=== PATIENT | male | born 1980 | race Caucasian/White ===

== ENCOUNTER 2018-10-28 09:43 | Day surgery (SDC) | payer OTHER ==
[2018-10-24 17:03] VITALS: BMI 20.1
[2018-10-28] VITALS (12 sets, daily range): BP systolic 122–144; BP diastolic 72–92; PULSE 74–86; RESP 11–20; Ht 193 cm; Wt 76.3 kg
[~2018-10-28] VITALS: Ht 193 cm; Wt 76.3 kg
[~2018-10-28 09:43] MED LIST: DESFLURANE 15 MIN ONE; DEXAMETHASONE 4 MG/ML 5 ML INJ ONE
--- NOTE | 2018-10-28 11:59 | SIPON ---
Date/Time of Note Date/Time of Note DATE: 10/28/18 TIME: 11:58 Operative Report Preoperative Diagnosis dns, nasal fx Postoperative Diagnosis same Operation/Procedure Performed [email or web address] Surgeon see signature line access services assistant na Anesthesia: general Estimated blood loss: 10 - 50 ml's Transfusion Required none Specimen septal bone Grafts/Implants none Complications none JODY COTTER MD Oct 28, 2018 11:59
--- NOTE | 2018-10-28 14:14 | HPN ---
Date/Time of Note Date/Time of Note DATE: 10/28/18 TIME: 14:13 Interval H&P Admission Note Pt. seen H&P reviewed: No system changes JODY COTTER MD Oct 28, 2018 14:14
[2018-10-28] MEDS ORDERED: LIDOCAINE 1%/EPI (1:100,000) (MDV) 20 ML ONE (14:24)
[2018-10-28] MEDS ORDERED: OXYMETAZOLINE 0.05% 15 ML NAS SPRAY NASAL ONE (14:24)
--- NOTE | 2018-10-28 14:25 | PREAC ---
Date/Time of Note Date/Time of Note DATE: 10/28/18 TIME: 14:23 Anesthesia Eval and Record Evaluation Time Pre-Procedure Interview DATE: 10/28/18 TIME: 14:23 Age 38 Sex male NPO: 8 hrs (deviated septum) Preoperative diagnosis nasal fracture, deviated septum Planned procedure open reduction nasal fx, septoplasty, B/l turbinate modification Past Medical History Past Medical History: None Surgery & Anesthesia Issues No known issue Meds Anticoagulation: No Beta Leroy within 24 hr: No Reason Beta Leroy not given: Pt. not on B-Leroy No Active Prescriptions or Reported Meds Meds reviewed: Yes Allergies Coded Allergies: aspirin (Verified Allergy, Unknown, NAUSEA AND VOMITTING, 10/28/18) shellfish derived (Verified Allergy, Unknown, ITCHY EYES,WATERY EYES,SORE THROAT, 10/24/18) soybean (Verified Allergy, Unknown, ITCHY EYES,SORE THROAT,WATERY EYES, 10/24/18) Uncoded Allergies: SESAME (Allergy, Unknown, ITCHY EYES,WATERY EYES,SORE THROAT,, 10/24/18) TUNA (Allergy, Unknown, ITCHY EYES,SORE THROAT,WATERY EYES,SNEEZING, 10/24/18) Allergies Reviewed: Yes Labs/Studies Labs Reviewed: Reviewed by anesthesiologist test: N/A Studies: ECG (n/a), CXR (n/a) Pre-procedure Exam Last vitals Vital Signs Date Temp Pulse Resp B/P (MAP) Pulse Ox O2 O2 Flow FiO2 Time Delivery Rate 10/28/18 97.9 16 129/72 98 Room Air 11:16 (91) Airway: Adequate mouth opening Mallampati: Mallampati I Teeth: Normal Lung: Normal Heart: Normal ASA Physical Status ASA physical status: 1 Emergency: None Planned Anesthetic General/MAC: ETT Planned Pain Management Parenteral pain med Pre-operative Attestations Prior to commencing anesthesia and surgery, the patient was re-evaluated, there was verification of: *The patient's identity *The results of appropriate recent lab work and preoperative vital signs *The above evaluation not changing prior to induction *Anesthetic plan, risk benefits, alternative and complications discussed with patient/family; questions answered; patient/family understands, accepts and wishes to proceed. EFFIE CRISTOBAL MD Oct 28, 2018 14:25
[2018-10-28] MEDS ORDERED: FENTAnyl 50 MCG/ML VIAL IV PRN ×3 (14:30)
[2018-10-28] MEDS ORDERED: ONDANSETRON 4 MG INJ IV PRN (14:30)
[2018-10-28] MEDS ORDERED: HYDROmorphONE 1 MG/5 ML IV SYRINGE IV PRN ×3 (14:30)
[2018-10-28] MEDS ORDERED: OXYCODONE/ACETAMINOPHEN (5/325) TAB PO PRN ×2 (14:30)
[2018-10-28] MEDS ORDERED: DIPHENHYDRAMINE 50 MG INJ IV PRN (14:30)
[2018-10-28] MEDS ORDERED: MEPERIDINE 25 MG INJ IV PRN (14:30)
[2018-10-28] MEDS ORDERED: ONDANSETRON 4 MG INJ ONE (14:31)
[2018-10-28] MEDS ORDERED: PROPOFOL 20 ML ONE (14:31)
[2018-10-28] MEDS ORDERED: ROCURONIUM 50 MG INJ ONE (14:31)
[2018-10-28] MEDS ORDERED: MIDAZOLAM 1 MG/ML 2 ML INJ ONE (14:34)
[2018-10-28] MEDS ORDERED: FENTAnyl 50 MCG/ML VIAL ONE (14:36)
--- NOTE | 2018-10-28 17:18 | PAC ---
Date/Time of Note Date/Time of Note DATE: 10/28/18 TIME: 17:18 Post-Anesthesia Notes Post-Anesthesia Note Last documented vital signs Vital Signs Date Temp Pulse Resp B/P (MAP) Pulse Ox O2 O2 Flow FiO2 Time Delivery Rate 10/28/18 98.3 17:00 10/28/18 98.2 78 15 135/79 97 Room Air 16:59 (97) Activity: WNL Respiratory function: WNL Cardiovascular function: WNL Mental status: Baseline Pain reasonably controlled: Yes Hydration appropriate: Yes Nausea/Vomiting absent: No EFFIE CRISTOBAL MD Oct 28, 2018 17:18
[2018-10-28] MEDS ORDERED: NEOSTIGMINE 3 MG/3 ML SYRINGE ONE (17:25)
[2018-10-28] MEDS ORDERED: GLYCOPYRROLATE 0.4 MG INJ ONE (17:25)
== END 2018-10-28 18:00 | disposition home or self-care (01) ==
LOC: SDS 09:43
PROVIDERS: ATTEND Otolaryngology
DX: J34.2 Deviated nasal septum (principal)
CPT/HCPCS: 30140; 30520; 88300; J1100; J2250; J2405; J2710; J3010; Z7512; Z7610